=== PATIENT | male | born 2005 | race Caucasian/White ===

== ENCOUNTER 2024-03-04 13:43 | Emergency (ER) | payer SELFPAY ==
[~2024-03-04] VITALS: Ht 175.3 cm; Wt 101.0 kg
[2024-03-04 13:44] VITALS: BP 114/60; TEMP 98.2; O2SAT 97
[2024-03-05] MEDS ORDERED: OCUF0.25 OU (13:59)
== END 2024-03-04 20:35 | disposition left against medical advice (07) ==
LOC: M ED 13:43
DX: Z53.21 Procedure and treatment not carried out due to patient leaving prior to being seen by health care provider (principal)

== ENCOUNTER 2024-03-05 10:13 | Emergency (ER) | payer OTHER, SELFPAY ==
[~2024-03-05] VITALS: Ht 175.3 cm; Wt 101.4 kg
[2024-03-05] MEDS: PROPARACAINE 0.5% OPHTH SOL 15ML OS ONE (12:55)
[2024-03-05] MEDS: FLUORESCEIN OPHTH 1MG STRIP OS ONE (12:55)
[2024-03-05] MEDS ORDERED: OCUF0.25 OU (13:59)
[2024-03-05 14:16] VITALS: BP 126/85; TEMP 97.9; O2SAT 99
== END 2024-03-05 14:17 | disposition home or self-care (01) ==
LOC: M ED 10:13
DX: H10.212 Acute toxic conjunctivitis, left eye (principal); T52.0X1A Toxic effect of petroleum products, accidental (unintentional), initial encounter; Z79.2 Long term (current) use of antibiotics

== ENCOUNTER 2024-04-14 00:05 | Emergency (ER) | payer OTHER ==
[~2024-04-14 00:05] MED LIST: OCUF0.25 OU
== END 2024-04-14 00:40 | disposition left against medical advice (07) ==
LOC: M ED 00:05
DX: Z53.21 Procedure and treatment not carried out due to patient leaving prior to being seen by health care provider (principal)

== ENCOUNTER → 2024-06-05 | Outpatient (CLI) | payer OTHER | LOC: M CARPUL 13:36 | PROVIDERS: ATTEND Physician Assistant | DX: R06.00 Dyspnea, unspecified (principal) ==

== ENCOUNTER → 2024-07-17 | Outpatient (CLI) | payer OTHER ==
[~2024-07-17] MED LIST changes: +METHACHOLINE KIT (6 VIAL.NEB PREMIX) INH ONE
== END ==
LOC: M CARPUL 11:01
PROVIDERS: ATTEND Physician Assistant
DX: R06.00 Dyspnea, unspecified (principal)

== ENCOUNTER 2025-08-28 03:59 | Emergency (ER) | payer OTHER ==
[~2025-08-28] VITALS: Ht 175.3 cm; Wt 118.6 kg
[~2025-08-28 03:59] MED LIST changes: -METHACHOLINE KIT (6 VIAL.NEB PREMIX) INH ONE
[2025-08-28 05:50] LABS: BASO # 0.0 10^3/uL (0.0-0.2); BASO % 0.3 % (0.0-1.0); EOS # 0.1 10^3/uL (0.0-0.5); EOS % 0.7 % (0.0-3.0); LYMPH # 2.1 10^3/uL (1.5-5.0); LYMPH % 18.0 % (24.0-44.0); MONO # 0.8 10^3/uL (0.0-0.8); MONO % 6.6 % (2.0-8.0); NEUTROPHILS # 8.8 10^3/uL (1.5-8.5); NEUTROPHILS % 74.1 % (36.0-66.0); PLATELET COUNT, AUTOMATED 268 10^3/uL (150-450)
[2025-08-28] MEDS: ACETAMINOPHEN *IV* 1,000 MG in IV 1 EA IV ONE (05:58)
[2025-08-28 06:08] LABS: ETHYL ALCOHOL (ETHANOL) 0.149 % (0.000-0.010)
[2025-08-28 06:10] LABS: CALCIUM LEVEL 8.4 MG/DL (8.5-10.1); CARBON DIOXIDE LEVEL 26 MMOL/L (20-31); CHLORIDE LEVEL 106 MMOL/L (98-107); CREATININE FOR GFR 0.85 MG/DL (0.70-1.30); GLOMERULAR FILTRATION RATE > 90.0 (>60); POTASSIUM SERUM 4.7 MMOL/L (3.5-5.1); SODIUM LEVEL 143 MMOL/L (136-145)
[2025-08-28 06:11] LABS: AMPHETAMINES LEVEL URINE NEGATIVE (NEGATIVE); BARBITURATES URINE NEGATIVE (NEGATIVE); BENZODIAZEPINES URINE NEGATIVE (NEGATIVE); CANNABINOIDS URINE NEGATIVE (NEGATIVE); COCAINE METABOLITE URINE NEGATIVE (NEGATIVE); METHADONE URINE NEGATIVE (NEGATIVE); OPIATES URINE NEGATIVE (NEGATIVE); PHENCYCLIDINE URINE NEGATIVE (NEGATIVE)
[2025-08-28 06:30] VITALS: TEMP 97.1
[2025-08-28 07:31] VITALS: BP 108/56; O2SAT 96
== END 2025-08-28 07:49 | disposition home or self-care (01) ==
LOC: M ED 03:59
DX: Z04.71 Encounter for examination and observation following alleged adult physical abuse (principal); F10.120 Alcohol abuse with intoxication, uncomplicated; Z91.013 Allergy to seafood; Z79.899 Other long term (current) drug therapy
CPT/HCPCS: 70450; 72125; 73610; 80048; 80307; 82077; 85025; 93005; 96365; 99284; J0134